=== PATIENT | female | born 2000 | race Caucasian/White ===

== ENCOUNTER 2023-06-02 15:38 | Emergency (ER) | payer OTHER, SELFPAY ==
[2023-06-02 15:40] VITALS: BP 124/87
--- NOTE | 2023-06-02 16:03 | ED.GENMED ---
History of Present Illness
<Tamie Gresham PA-C - Last Filed: 06/06/23 09:06>
General
Chief Complaint: Head Injury
Source: patient
Exam Limitations: none
Time Seen by Provider: 06/02/23 15:44
Nursing documentation reviewed up to this point in time: agreed with
Travel History
Have you had any contact with someone who has COVID-19?: No
Do you have any symptoms of coronavirus? Fever > 100 degrees, chills, cough, shortness of breath, sore throat, loss of taste or smell, muscle aches, or headache?: No
History of Present Illness
History of Present Illness:
This is a 23-year-old female presenting to the emergency department today with an occipital headache, nausea, and dizziness following fall from a horse. Patient states that she was riding her horse and jumping over the fence around an hour ago, when
she fell forward, flipped, and fell on her head. Patient states that immediately after the injury, she did not loose consciousness and did not have any vomiting. She currently complains of a headache, nausea, dizziness, but no visual changes.
Patient denies neck pain, chest pain, abdominal pain, shoulder pain, or any other injuries. Patient was able to get up on her own after the injury and is able to walk without any difficulties. Patient states that it takes her a few minutes to find
her words. Patient had a similar fall from her horse 4 years ago, where she had a concussion. Patient currently a student.
Review of Systems
<Tamie Gresham PA-C - Last Filed: 06/06/23 09:06>
Review of Systems
All Other Systems: ROS reviewed and negative except as documented in HPI and ROS
Phy Exam
<Tamie Gresham PA-C - Last Filed: 06/06/23 09:06>
Physical Exam
Physical Exam:
General: Patient is well-appearing in no acute distress
Skin: Warm and dry, no rashes or lesions, no ecchymosis
Head: normocephalic, atraumatic, no palpable hematomas
Eyes: PERRLA. no nystagmus
Cardiac: Tachycardia, no tenderness to palpation of the external chest wall, no crepitus
Pulm: normal respiratory effort
Abdomen: no tenderness to palpation
Musculoskeletal: patient seen spontaneously moving cervical spine, no tenderness to palpation of the cervical spine
Neuro: CN II-XII intact. No focal neurologic deficit. Finger to nose, heel to lombardi testing intact.
Course
<Tamie Gresham PA-C - Last Filed: 06/06/23 09:06>
Orders/Labs/Results
Orders:
Orders
06/02/23 16:02
CT Head W/o Iv Contrast Urgent
Comment:
Reason For Exam: head trauma, dizziness
Vital Signs
Initial and Last Documented VS:
Initial Vital Signs
Temp Pulse Resp BP Pulse Ox
98.1 F 122 18 124/87 98
06/02/23 15:40 06/02/23 15:40 06/02/23 15:40 06/02/23 15:40 06/02/23 15:40
Last Documented Vital Signs
Temp Pulse Resp BP Pulse Ox
98.1 F 84 18 112/71 98
06/02/23 15:40 06/02/23 20:43 06/02/23 15:40 06/02/23 20:43 06/02/23 15:40
<Lucas Fajardo DO - Last Filed: 06/02/23 20:30>
Orders/Labs/Results
Orders:
Orders
06/02/23 16:02
CT Head W/o Iv Contrast Urgent
Comment:
Reason For Exam: head trauma, dizziness
Vital Signs
Initial and Last Documented VS:
Initial Vital Signs
Temp Pulse Resp BP Pulse Ox
98.1 F 122 18 124/87 98
06/02/23 15:40 06/02/23 15:40 06/02/23 15:40 06/02/23 15:40 06/02/23 15:40
Last Documented Vital Signs
Temp Pulse Resp BP Pulse Ox
98.1 F 84 18 112/71 98
06/02/23 15:40 06/02/23 20:43 06/02/23 15:40 06/02/23 20:43 06/02/23 15:40
<Tamie Gresham PA-C - Last Filed: 06/06/23 09:06>
*Critical Care Note
Total Time (30-74mins, 75-104mins- exclusive of procedures): Not Applicable
<Tamie Gresham PA-C - Last Filed: 06/06/23 09:06>
Patient Management
Escalation/DeEscalation of care consider admission/obs:
CT shows no acute intracranial abnormality. Patient medically stable for discharge at this time.
ED Attending Note
<Tamie Gresham PA-C - Last Filed: 06/06/23 09:06>
-
Portions of this chart may have been created with voice recognition software.� Occasional wrong word or��sound alike� substitutions may have occurred due to the inherent limitations of voice recognition software.
<Lucas Fajardo DO - Last Filed: 06/02/23 20:30>
ED Attending Note
Patient seen and examined by attending physician: Yes
I performed the substantive portion of visit, reviewed & personally made and approve the management plan that is documented in note by myself or STEVE.: Yes
ED Attending Note:
I have seen and evaluated the patient with a [id number] encounter. I have spoken to the advance practicer provider and involved in the medical history, the physical exam, medical decision making.
Evaluation and management service: agree unless noted differently below.
Results interpretation: agree unless noted differently below.
Focused HPI: 23-year-old female presenting with posterior head injury. Patient fell off a horse. She was wearing her helmet. She complains of nausea and fogginess.
Physical exam: Significant comfortably. No cervical tenderness. EOMI.
Medical Decision Making: Discussed concussion and low yield for CT head. Discussed that CT head does not appear to be warranted but patient requesting it. Will obtain CT but discussed expectant management
Discharge Plan
Departure
Patient Disposition: Home (Routine Discharge)
Date of Disposition: 06/02/23
Time of Disposition: 20:29
Patient with high blood pressure during this ER visit?: No
Condition: Good
Discharge Problem:
Concussion
Instructions: Concussion, Adult (DC), Head Injury in Adults (DC)
Referrals:
UNKNOWN - PT DOES,NOT KNOW [Family Provider] -
Stand Alone Forms: Return to Work
Activity Restrictions/Additional Instructions:
Please refrain from horseback riding until your symptoms resolve. Please limit screen time.
Please follow up with your primary care provider.
Please return to the emergency department for any concerns.
Interventions
Interventions:
*Risk Screen - Suicide Last Done: 06/02/23 15:40
*General Assessment Last Done: 06/02/23 15:40
*Neglect/Abuse Screening Last Done: 06/02/23 15:40
*ED COVID-19 Vaccine History Last Done: 06/02/23 15:40
*Nursing Disposition Last Done: 06/02/23 20:43
ED- Neurological Assessment Last Done: 06/02/23 16:43
ED-Skin Assessment Last Done: 06/02/23 16:43
Discharge Date and Time
Discharge Date/Time: 06/02/23 20:43
[2023-06-02 20:35] VITALS: BP 112/71
[2023-06-02 20:43] VITALS: BP 112/71
== END 2023-06-02 20:43 | disposition home or self-care (01) ==
LOC: EMR 15:38
PROVIDERS: EMERGENCY PHYSICIAN Student in an Organized Health Care Education/Training Program
DX: S06.0XAA Concussion with loss of consciousness status unknown, initial encounter (principal); V80.010A Animal-rider injured by fall from or being thrown from horse in noncollision accident, initial encounter; Y93.52 Activity, horseback riding
CPT/HCPCS: 99284; 70450